=== PATIENT | male | born 1955 | race Caucasian/White ===

== ENCOUNTER 2016-08-26 14:26 | Emergency (ER) | payer OTHER ==
[2016-08-26 16:22] LABS: HEMOGLOBIN 16.1 gm/dl (14.0-17.5); RED BLOOD COUNT 5.26 M/UL (4.20-5.50); WHITE BLOOD COUNT 18.7 K/UL (4.5-11.0)
[2016-08-26 16:41] LABS: BUN/CREATININE RATIO 13 (0-10)
== END 2016-08-26 21:15 | disposition home or self-care (01) ==
LOC: ER1 14:26
PROVIDERS: Emergency Medicine
DX: J36 Peritonsillar abscess (principal); F17.200 Nicotine dependence, unspecified, uncomplicated
CPT/HCPCS: 36415; 70491; 71260; 80048; 85025; 85610; 85730; 96361; 96365; 96375; 99283; J1100; J1885; J2270; J2405; J7050; Q9962